=== PATIENT | male | born 1955 | race Caucasian/White ===

== ENCOUNTER 2017-05-06 11:25 | Emergency (ER) | payer BC ==
[~2017-05-06] VITALS: Ht 170.2 cm; Wt 103.2 kg
[~2017-05-06 11:25] MED LIST: OSEL75CA12 PO
[2017-05-06 11:27] VITALS: TEMP 36.7; Ht 170.2 cm; Wt 103.2 kg
[2017-05-06] MEDS ORDERED: FAMOTIDINE 20MG/5ML IV PUSH IV STA (11:47)
--- NOTE | 2017-05-06 11:54 | EMERGENCY ROOM VISIT NOTE ---
History Report prepared by Elza: Pierce Winston Under the Supervision of: Dr. Isaac Horan M.D. First contact with patient: 11:45 Chief Complaint: CHEST PAIN Stated Complaint: CHEST PAINS X 1 WEEK Nursing Triage Summary: Intermittent chest pain/back for the past two weeks. History of Present Illness The patient is a 61 year old male who presents to the Emergency Room with complaints of intermittent chest pain that started a week ago. He says that the pain radiates to his back intermittently as well. The patient states that the pain is currently not there. He notes that he was watching TV this morning around 0730, and then the pain came on. 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 He states that there is no pattern of pain with eating or position. He notes that the pain is "really deep inside". The patient denies any nausea, vomiting, shortness of breath, dizziness, sweats, cough, congestion, nausea, vomiting, or diarrhea. He says that he has no chronic medical problems, but notes that he has been dealing with hives over the past month. The patient states they come on typically after burning wood. He notes no family history of early heart attacks, but does not a family history of heart attacks. He notes no personal history of blood clots or cancer. Source of History: patient, spouse/significant other Onset: A week ago Position: chest Quality: other (really deep inside) Timing: intermittent Modifying Factors (Worsening): other (cold air) Associated Symptoms: + back pain, No diaphoresis, No cough (or congestion), No SOB, No nausea, No vomiting, No diarrhea Note: Associated symptoms: Denies dizziness. Review of Systems See HPI for pertinent positives and negatives. A total of ten systems were reviewed and were otherwise negative. Past Medical & Surgical Medical Problems: (1) No chronic diseases present Family History Heart disease Social History Smoking Status: Never Smoker Marital Status: Housing Status: lives with family Occupation Status: employed Current/Historical Medications Scheduled Diphenhydramine Hcl (Benadryl), 25 MG PO PRN Famotidine (Pepcid), 20 MG PO BID Ranitidine Hcl (Zantac), 150 MG PO PRN Scheduled PRN Ibuprofen Tab (Advil), 400-600 MG PO Q6H PRN for Mild Pain Allergies Coded Allergies: No Known Allergies (Unverified , 05/06/17) Physical Exam Vital Signs Date Time Temp Pulse Resp B/P (MAP) Pulse Ox O2 Delivery O2 Flow Rate FiO2 05/06/17 15:38 77 20 151/98 94 05/06/17 14:30 77 18 123/77 97 Room Air 05/06/17 11:43 81 05/06/17 11:27 36.7 86 20 164/93 95 Room Air Physical Exam GENERAL: Awake, alert, well-appearing, in no distress HENT: Normocephalic, atraumatic. Oropharynx unremarkable. EYES: Normal conjunctiva. Sclera non-icteric. NECK: Supple. No nuchal rigidity. FROM. No JVD. RESPIRATORY: Clear to auscultation. CARDIAC: Regular rate, normal rhythm. Extremities warm and well perfused. Pulses equal. ABDOMEN: Soft, non-distended. No tenderness to palpation. No rebound or guarding. No masses. RECTAL: Deferred. MUSCULOSKELETAL: Chest examination reveals no tenderness. The back is symmetrical on inspection without obvious abnormality. There is no CVA tenderness to palpation. No joint edema. LOWER EXTREMITIES: Calves are equal size bilaterally and non-tender. No edema. No discoloration. NEURO: Normal sensorium. No sensory or motor deficits noted. SKIN: No rash or jaundice noted. Medical Decision & Procedures ER Provider Diagnostic Interpretation: X-ray: Per my interpretation, radiologist review. CHEST ONE VIEW PORTABLE CLINICAL HISTORY: Chest pain. COMPARISON STUDY: Chest radiograph April 05, 2010. FINDINGS: Mild elevation/eventration of the right hemidiaphragm is unchanged. There is no pneumothorax or pleural effusion. Pulmonary vascularity is normal. No consolidation is identified. Cardiomediastinal silhouette is normal. IMPRESSION: No acute cardiopulmonary findings. Electronically signed by: Demarco Molina M.D. 05/06/2017 12:42 PM Dictated Date/Time: 05/06/2017 12:42 PM Laboratory Results 05/06/17 11:40 Red Blood Count 5.75, Mean Corpuscular Volume 76.9, Mean Corpuscular Hemoglobin 28.0, Mean Corpuscular Hemoglobin Concent 36.4, Mean Platelet Volume 10.5, Neutrophils (%) (Auto) 54.5, Lymphocytes (%) (Auto) 31.9, Monocytes (%) (Auto) 10.4, Eosinophils (%) (Auto) 2.1, Basophils (%) (Auto) 0.1, Neutrophils # (Auto ) 3.67, Lymphocytes # (Auto) 2.15, Monocytes # (Auto) 0.70, Eosinophils # (Auto ) 0.14, Basophils # (Auto) 0.01 05/06/17 11:40 Test 05/06/17 11:40 05/06/17 14:30 White Blood Count 6.74 K/uL (4.8-10.8) Red Blood Count 5.75 M/uL (4.7-6.1) Hemoglobin 16.1 g/dL (14.0-18.0) Hematocrit 44.2 % (42-52) Mean Corpuscular Volume 76.9 fL (80-100) Mean Corpuscular Hemoglobin 28.0 pg (25-34) Mean Corpuscular Hemoglobin Concent 36.4 g/dl (32-36) Platelet Count 146 K/uL (130-400) Mean Platelet Volume 10.5 fL (7.4-10.4) Neutrophils (%) (Auto) 54.5 % Lymphocytes (%) (Auto) 31.9 % Monocytes (%) (Auto) 10.4 % Eosinophils (%) (Auto) 2.1 % Basophils (%) (Auto) 0.1 % Neutrophils # (Auto) 3.67 K/uL (1.4-6.5) Lymphocytes # (Auto) 2.15 K/uL (1.2-3.4) Monocytes # (Auto) 0.70 K/uL (0.11-0.59) Eosinophils # (Auto) 0.14 K/uL (0-0.5) Basophils # (Auto) 0.01 K/uL (0-0.2) RDW Standard Deviation 39.1 fL (36.4-46.3) RDW Coefficient of Variation 13.9 % (11.5-14.5) Immature Granulocyte % (Auto) 1.0 % Immature Granulocyte # (Auto) 0.07 K/uL (0.00-0.02) Anion Gap 6.0 mmol/L (3-11) Est Creatinine Clear Calc Drug Dose 59.7 ml/min Estimated GFR () 59.0 Estimated GFR (Non- 50.9 BUN/Creatinine Ratio 15.8 (10-20) Calcium Level 8.5 mg/dl (8.5-10.1) Total Bilirubin 0.4 mg/dl (0.2-1) Direct Bilirubin < 0.1 mg/dl (0-0.2) Aspartate Amino Transf (AST/SGOT) 27 U/L (15-37) Alanine Aminotransferase (ALT/SGPT) 50 U/L (12-78) Alkaline Phosphatase 99 U/L (45-117) Total Protein 7.3 gm/dl (6.4-8.2) Albumin 3.5 gm/dl (3.4-5.0) Lipase 152 U/L (73-393) Troponin I < 0.015 ng/ml (0-0.045) Laboratory results reviewed by me Medications Administered Medications (Trade) Dose Ordered Sig/Kaylah Route Start Time Stop Time Status Last Admin Dose Admin Famotidine (Pepcid 20mg Iv Push) 20 mg NOW STAT IV 05/06/17 11:47 05/06/17 11:54 DC 05/06/17 12:27 20 MG ECG Indication: chest pain Rate (beats per minute): 82 Rhythm: normal sinus Findings: no acute ischemic change, other (normal axis) ED Course 1146: The patient was evaluated in room A9B. A complete history and physical exam was performed. 1147: Ordered Pepcid 20 mg IV Push. 1519: I reevaluated the patient and he is resting comfortably. Discussed results and discharge instructions: he verbalized understanding and agreement. The patient is ready for discharge. Medical Decision I reviewed the patient's past medical history, medications, and the nursing notes as described above. Differential diagnosis includes but is not limited to: pneumonia, bronchitis, ACS, gastritis, reflux, peptic ulcer disease, PE. The patient is a 61 y/o man who presents to the ED with CP that has been intermittent over past week with constant episode occurring this morning per HPI. On arrival the patient is well-appearing in NAD, AFVSS. EKG unremarkable. Trop negative. CXR unremarkable. Labs otherwise unremarkable. Sx resolved after IV pepcid. Heart score, 3, low risk. Delta troponin also negative, thus, ACS not likely. PE not likely given not tachy or hypoxic and denies sob. Sx possibly related to reflux/gastritis given improvement with pepcid. Plan for pcp f/u for re-eval and possible outpatient stress test if sx persist. Findings and plan for follow-up reviewed with patient. Patient agreeable and d/c'd per discharge instructions. Medication Reconcilliation Current Medication List: was personally reviewed by me Blood Pressure Screening Patient's blood pressure: Normal blood pressure Impression Primary Impression: Substernal precordial chest pain Scribe Attestation The scribe's documentation has been prepared under my direction and personally reviewed by me in its entirety. I confirm that the note above accurately reflects all work, treatment, procedures, and medical decision making performed by me. Departure Information Dispostion Home / Self-Care Prescriptions Famotidine (PEPCID) 20 Mg Tab 20 MG PO BID for 7 Days, #14 TAB Prov: Isaac Horan M.D. 05/06/17 Referrals Chaz Moreira M.D.([facility]ON[facility]) (PCP) Patient Instructions ED Chest Pain Atypical Unkn Cause, My [facility] Additional Instructions Please follow up with your primary care physician on Monday for re-evaluation. The exact cause of your symptoms is unclear at this time but may be due to reflex or gastritis. Otherwise, your exam, EKG, chest xray, and lab results did not show signs of an emergent condition at this time. Pepcid for acid reduction to see if symptoms resolve. Return to the emergency department for worsening symptoms as described in the accompanying instructions.
[2017-05-06 12:07] LABS: BASO % 0.1 %; BASO ABS # 0.01 K/uL (0-0.2); COMPLETE YES; EOS % 2.1 %; HEMATOCRIT 44.2 % (42-52); LYMPH % 31.9 %; LYMPH ABS # 2.15 K/uL (1.2-3.4); MEAN CELL VOLUME 76.9 fL (80-100); MEAN CORPUSCULAR HGB CONC 36.4 g/dl (32-36); MEAN PLATELET VOLUME 10.5 fL (7.4-10.4); MONO % 10.4 %; NEUT % 54.5 %; PLATELET COUNT 146 K/uL (130-400); RED BLOOD COUNT 5.75 M/uL (4.7-6.1); WHITE BLOOD COUNT 6.74 K/uL (4.8-10.8)
[2017-05-06 12:21] LABS: ALT/SGPT 50 U/L (12-78); AST/SGOT 27 U/L (15-37); BLOOD UREA NITROGEN 23 mg/dl (7-18); BUN/CREATININE RATIO 15.8 (10-20); CALCIUM 8.5 mg/dl (8.5-10.1); CARBON DIOXIDE 25 mmol/L (21-32); CHLORIDE 106 mmol/L (98-107); CREATININE 1.45 mg/dl (0.60-1.40); GLUCOSE 127 mg/dl (70-99); POTASSIUM 3.9 mmol/L (3.5-5.1); SODIUM 137 mmol/L (136-145)
[2017-05-06 12:25] LABS: ALKALINE PHOSPHATASE 99 U/L (45-117)
--- NOTE | 2017-05-06 12:44 | DIAGNOSTIC IMAGING REPORT ---
CHEST ONE VIEW PORTABLE CLINICAL HISTORY: Chest pain. COMPARISON STUDY: Chest radiograph April 05, 2010. FINDINGS: Mild elevation/eventration of the right hemidiaphragm is unchanged. There is no pneumothorax or pleural effusion. Pulmonary vascularity is normal. No consolidation is identified. Cardiomediastinal silhouette is normal. IMPRESSION: No acute cardiopulmonary findings. Electronically signed by: Demarco Molina M.D. 05/06/2017 12:42 PM Dictated Date/Time: 05/06/2017 12:42 PM
[2017-05-06] MEDS ORDERED: DIPH25CA5 PO (13:16)
[2017-05-06] MEDS ORDERED: RANI150T3 PO (13:16)
[2017-05-06] MEDS ORDERED: IBUP-103 PO (13:16)
[2017-05-06] MEDS ORDERED: FAMO20TA9 PO (15:28)
[2017-05-06 15:38] VITALS: BP 151/98; PULSE 77; O2SAT 94
== END 2017-05-06 15:40 | disposition home or self-care (01) ==
LOC: C.EDB 11:27 → C.EDA 15:40
DX: R07.2 Precordial pain (principal)